=== PATIENT | male | born 1955 | race Caucasian/White ===

== ENCOUNTER 2017-04-07 11:25 | Emergency (ER) | payer BC ==
--- NOTE | ~2017-04-07 | ER ---
ADMIT: 04/07/2017 RM/LOC: ER [facility] MR#: [id number] [address] [id number] LEXI WETZEL [address] [place] [id number] Emergency Room Report SEX: M AGE: 61 : 1955 DATE: 04/07/2017 ADDENDUM: A 61-year-old white male coming with nonspecific complaints, little dizziness, question of a little shoulder twinges he said. He CT'd his head. He does have stents. CBC, chemistry, are troponin are negative as well as his EKG. I did speak with Dr. Boone and Dr. Ellison, who both know him. He has nonobstructive disease. He is going to be discharged and then follow up with [facility] as before. CONDITION ON DISCHARGE: Good. Enrico Kirk MD/ annika JOB #: [id number] CC: Enrico Kirk MD, Attending Physician Ulises Boone MD, Family Physician
[~2017-04-07 11:25] MED LIST: ACID CONTROL20 MG PO; ASA325 MG PO; HYZAAR 50-12.51 TAB PO; NORCO 5-325 TA1 EACH PO; NORVASC2.5 MG PO; OMEGA-3 DPS1000 MG PO; PRILOSEC DPS20 MG PO; XARELTO20 MG PO; ZETIA10 MG PO; ZOCOR DPS20 MG PO
== END 2017-04-07 14:30 | disposition home or self-care (01) ==
LOC: ER 11:25
DX: R42 Dizziness and giddiness (principal); I25.10 Atherosclerotic heart disease of native coronary artery without angina pectoris; I10 Essential (primary) hypertension; I25.2 Old myocardial infarction; E78.5 Hyperlipidemia, unspecified; Z86.718 Personal history of other venous thrombosis and embolism; Z95.5 Presence of coronary angioplasty implant and graft; Z79.82 Long term (current) use of aspirin; Z79.899 Other long term (current) drug therapy